=== PATIENT | female | born 1960 ===

== ENCOUNTER 2019-01-13 10:40 | Day surgery (SDC) | payer OTHER, BC ==
[~2019-01-13] VITALS: Ht 162.6 cm; Wt 94.3 kg
[~2019-01-13 10:40] MED LIST: ARIP10TA15 PO; ASPI-920 PO; CHOL2000 PO; CITA20TA28 PO; DEXL60CA3 PO; DIGO125T PO; ESZO2TAB PO; LENA10CA PO; METO-539 PO; MONT10TA21 PO; MYCO360T PO; TACR1CAP28 PO
[2019-01-13] MEDS ORDERED: normal saline 1,000 ML IV SCH (11:00)
[2019-01-13] MEDS ORDERED: cefazolin/dext.iso 2gm/50ml 50 ML IV ONE (11:05)
[2019-01-13] MEDS ORDERED: heparin 1,000unit/ml 10ml vial 10 ML ONE (11:44)
--- NOTE | 2019-01-13 12:00 | NUR ---
PT ARRIVED VIA [facility]. TDC WAS CLAMPED BUT CONNECTED TO A 250ML BAG OF NS. DR BELL CANCELLED PROCEDURE AFTER SPEAKING WITH DR NICHOLAS AND DR BEY AND CONCLUDED THAT WBC IS IMPROVING AND NO TDC EXCHANGE IS NEEDED AT THIS TIME. NALLELY ALEXANDER AND SYBIL RN FROM INTERVENTIONAL RADIOLOGY HEPRINIZED BOTH TDC PORTS PRIOR TO DISCHARGE. PT VITALS WNL 118/76, 96%, 83HR, 98.2 TEMP. PT WAS TRANSPORTED BACK TO [facility]. PT HAD ALL BELONGINGS.
== END 2019-01-13 12:00 ==
LOC: SSTAY O 10:40
PROVIDERS: ATTEND Radiology Diagnostic Radiology
DX: Z49.02 Encounter for fitting and adjustment of peritoneal dialysis catheter (principal); Z53.8 Procedure and treatment not carried out for other reasons; G47.00 Insomnia, unspecified; F32.9 Major depressive disorder, single episode, unspecified; N17.9 Acute kidney failure, unspecified; N18.6 End stage renal disease; Z88.5 Allergy status to narcotic agent; Z88.8 Allergy status to other drugs, medicaments and biological substances; Z88.2 Allergy status to sulfonamides; Z79.82 Long term (current) use of aspirin; Z79.899 Other long term (current) drug therapy; Z94.0 Kidney transplant status; Z95.0 Presence of cardiac pacemaker
CPT/HCPCS: J1644; J7030